=== PATIENT | female | born 1990 | race Caucasian/White ===

== ENCOUNTER 2017-04-15 13:17 | Inpatient (IN) | payer MEDICAID ==
[~2017-04-15] VITALS: Ht 165.1 cm; Wt 73.5 kg
[2017-04-15 13:50] LABS: BASOPHILS # (AUTO) 0.03 K/uL (0.00-0.20); BASOPHILS % (AUTO) 0.3 % (0.0-2.0); EOSINOPHILS # (AUTO) 0.03 K/uL (0.00-0.70); EOSINOPHILS % (AUTO) 0.35 % (1.0-6.0); HEMATOCRIT 36.5 % (36-46); HEMOGLOBIN 12.4 g/dL (12.0-16.0); LYMPHOCYTES # (AUTO) 1.6 K/uL (1.0-4.8); LYMPHOCYTES % (AUTO) 17.7 % (22.0-44.0); MEAN CORPUSCULAR HEMOGLOBIN 32.1 pg (26.0-34.0); MEAN CORPUSCULAR VOLUME 94 fL (80-100); MONOCYTES # (AUTO) 0.4 K/uL (0.1-1.0); MONOCYTES % (AUTO) 4.1 % (2.0-9.0); NEUTROPHILS # (AUTO) 7.1 K/uL (1.8-7.7); NEUTROPHILS % (AUTO) 77.6 % (40.0-70.0); PLATELET COUNT (AUTO) 270 K/uL (150-450); RED BLOOD CELL COUNT(AUTO) 3.87 MIL/uL (4.00-5.20); RED CELL DISTRIBUTION WIDTH 13.1 % (11.5-14.5); WHITE BLOOD COUNT (AUTO) 9.2 K/uL (4.5-11.0)
[2017-04-15] MEDS ORDERED: BUSP15 PO (13:53)
[2017-04-15 14:52] LABS: ANION GAP 13 mmol/L (8-16); CALCIUM, TOTAL 8.9 mg/dL (8.8-10.5); CARBON DIOXIDE 25 mmol/L (22-29); CHLORIDE 102 mmol/L (98-107); GLOMERULAR FILTR. RATE CALC > 60 mL/min (>60); POTASSIUM 3.7 mmol/L (3.5-5.1); SODIUM SERUM 140 mmol/L (136-145); UREA NITROGEN, BLOOD 7 mg/dL (7-18)
[2017-04-15 14:58] LABS: ALANINE AMINOTRANSFERASE 19 U/L (12-78); ALBUMIN 4.1 g/dL (3.4-5.0); ASPARTATE AMINOTRANSFERASE 19 U/L (15-37); BILIRUBIN,TOTAL 0.5 mg/dL (0.1-1.0); TOTAL PROTEIN, SERUM 8.3 g/dL (6.4-8.2)
[2017-04-15] MEDS ORDERED: LORazepam 2 MG TABLET PO PRN (15:00)
[2017-04-15] MEDS ORDERED: ZOLPIDEM TARTRATE 10 MG TABLET PO PRN (15:00)
[2017-04-15] MEDS ORDERED: HALOPERIDOL 5 MG TABLET PO PRN (15:00)
[2017-04-15] MEDS ORDERED: LORazepam 2 MG/ML VIAL IM ONE (15:15)
[2017-04-15] MEDS ORDERED: HALOPERIDOL LACTATE 5 MG/ML VIAL IM ONE (15:15)
[2017-04-15] MEDS ORDERED: DiphenhydrAMINE HCL 50 MG/ML VIAL IM ONE (15:15)
[2017-04-15 21:14] VITALS: BP 131/78
[2017-04-16 08:50] VITALS: BP 123/67
[2017-04-16] MEDS: RisperiDONE 1 MG TABLET PO SCH ×2 (10:00→17:00)
[2017-04-16] MEDS: BusPIRone HCL 15 MG TABLET PO SCH ×2 (10:52→18:21)
[2017-04-16 16:30] VITALS: BP 128/71
[2017-04-16] MEDS ORDERED: ACETAMINOPHEN 325 MG TABLET PO PRN (19:45)
[2017-04-17] MEDS: RisperiDONE 1 MG TABLET PO SCH ×2 (08:05→16:33)
[2017-04-17] MEDS: BusPIRone HCL 15 MG TABLET PO SCH ×2 (08:05→16:33)
[2017-04-17 08:10] VITALS: BP 115/66
[2017-04-17 16:15] VITALS: BP 113/70
[2017-04-18 08:00] VITALS: BP 110/65
[2017-04-18] MEDS: RisperiDONE 1 MG TABLET PO SCH ×2 (09:02→16:28)
[2017-04-18] MEDS: BusPIRone HCL 15 MG TABLET PO SCH ×2 (09:02→16:28)
[2017-04-18 16:32] VITALS: BP 116/70
[2017-04-19] MEDS: RisperiDONE 2 MG TABLET PO SCH ×2 (08:02→16:43)
[2017-04-19] MEDS: BusPIRone HCL 15 MG TABLET PO SCH ×2 (08:02→16:39)
[2017-04-19 08:09] VITALS: BP 121/76
[2017-04-19 17:00] VITALS: BP 100/60
[2017-04-20] MEDS: BusPIRone HCL 15 MG TABLET PO SCH ×2 (08:12→16:33)
[2017-04-20 08:59] VITALS: BP 124/61
[2017-04-20] MEDS ORDERED: ARIPiprazole 10 MG TABLET PO SCH (09:00)
[2017-04-20 18:56] VITALS: BP 112/77
[2017-04-20] MEDS: PALIPERIDONE 1.5 MG ER TABLET PO SCH (20:25)
[2017-04-21] MEDS: BusPIRone HCL 15 MG TABLET PO SCH ×2 (08:16→16:52)
[2017-04-21] MEDS: PALIPERIDONE 1.5 MG ER TABLET PO SCH ×2 (08:16→20:12)
[2017-04-21 08:26] VITALS: BP 137/63
[2017-04-21 16:56] VITALS: BP 125/75
[2017-04-22 08:00] VITALS: BP 111/67
[2017-04-22] MEDS: BusPIRone HCL 15 MG TABLET PO SCH ×2 (10:29→17:31)
[2017-04-22] MEDS: PALIPERIDONE 1.5 MG ER TABLET PO SCH ×2 (10:29→21:10)
[2017-04-22 17:18] VITALS: BP 112/74
[2017-04-23 08:05] VITALS: BP 111/54
[2017-04-23] MEDS: BusPIRone HCL 15 MG TABLET PO SCH ×2 (10:31→17:41)
[2017-04-23] MEDS: PALIPERIDONE 1.5 MG ER TABLET PO SCH ×2 (10:32→21:26)
[2017-04-23 16:15] VITALS: BP 119/79
[2017-04-24 08:19] VITALS: BP 107/67
[2017-04-24] MEDS: BusPIRone HCL 15 MG TABLET PO SCH ×2 (08:19→16:29)
[2017-04-24] MEDS: PALIPERIDONE 1.5 MG ER TABLET PO SCH ×2 (08:19→20:17)
[2017-04-24] MEDS: IBUPROFEN 400 MG TABLET PO PRN (11:47)
[2017-04-24 16:30] VITALS: BP 124/77
[2017-04-25 05:17] VITALS: BP 125/82
[2017-04-25] MEDS: IBUPROFEN 400 MG TABLET PO PRN (05:17)
[2017-04-25 08:04] VITALS: BP 103/75
[2017-04-25] MEDS: BusPIRone HCL 15 MG TABLET PO SCH ×2 (10:07→16:17)
[2017-04-25] MEDS: PALIPERIDONE 1.5 MG ER TABLET PO SCH ×2 (10:07→21:09)
[2017-04-25 17:00] VITALS: BP 114/52
[2017-04-26 08:00] VITALS: BP 126/75
[2017-04-26] MEDS: PALIPERIDONE 1.5 MG ER TABLET PO SCH ×2 (08:14→20:18)
[2017-04-26] MEDS: BusPIRone HCL 15 MG TABLET PO SCH ×2 (08:15→16:58)
[2017-04-26 19:23] VITALS: BP 117/71
[2017-04-27 08:14] VITALS: BP 110/77
[2017-04-27] MEDS: PALIPERIDONE 1.5 MG ER TABLET PO SCH ×2 (09:28→21:05)
[2017-04-27] MEDS: BusPIRone HCL 15 MG TABLET PO SCH ×2 (09:28→17:05)
[2017-04-27 17:02] VITALS: BP 126/74
[2017-04-28 09:13] VITALS: BP 120/60
[2017-04-28] MEDS: BusPIRone HCL 15 MG TABLET PO SCH (10:51)
[2017-04-28] MEDS: PALIPERIDONE 1.5 MG ER TABLET PO SCH (10:51)
[2017-04-28] MEDS ORDERED: PALI1.5T PO (12:03)
== END 2017-04-28 15:25 | disposition home or self-care (01) | DRG 751 ==
LOC: EMS 13:19 → 3EC 16:51 → 3EI 04-24 20:30
PROVIDERS: ADMIT Psychiatry & Neurology Psychiatry; ATTEND Psychiatry & Neurology Psychiatry
DX: F29 Unspecified psychosis not due to a substance or known physiological condition (principal); F22 Delusional disorders; F10.10 Alcohol abuse, uncomplicated; F41.9 Anxiety disorder, unspecified; Y04.0XXA Assault by unarmed brawl or fight, initial encounter; Z79.899 Other long term (current) drug therapy; Z88.8 Allergy status to other drugs, medicaments and biological substances
CPT/HCPCS: 96372; 99285; G0480; J1200; J1630; J2060

== ENCOUNTER 2017-04-30 23:19 | Emergency (ER) | payer MEDICAID ==
[~2017-04-30] VITALS: Ht 162.6 cm; Wt 73.6 kg
[~2017-04-30 23:19] MED LIST: BUSP15 PO; PALI1.5T PO
[2017-04-30 23:48] LABS: BASOPHILS % (AUTO) 0.5 % (0.0-2.0); EOSINOPHILS % (AUTO) 1.4 % (1.0-6.0); HEMATOCRIT 36.7 % (36-46); LYMPHOCYTES # (AUTO) 2.5 K/uL (1.0-4.8); LYMPHOCYTES % (AUTO) 24.4 % (22.0-44.0); MEAN CORPUSCULAR HEMOGLOBIN 31.3 pg (26.0-34.0); MEAN CORPUSCULAR HGB CONC 32.6 G/dL (31.0-37.0); MEAN CORPUSCULAR VOLUME 96 fL (80-100); MONOCYTES # (AUTO) 0.6 K/uL (0.1-1.0); MONOCYTES % (AUTO) 5.7 % (2.0-9.0); NEUTROPHILS # (AUTO) 7.1 K/uL (1.8-7.7); PLATELET COUNT (AUTO) 308 K/uL (150-450); RED BLOOD CELL COUNT(AUTO) 3.83 MIL/uL (4.00-5.20); RED CELL DISTRIBUTION WIDTH 13.2 % (11.5-14.5); WHITE BLOOD COUNT (AUTO) 10.5 K/uL (4.5-11.0)
[2017-04-30 23:58] LABS: ANION GAP 10 mmol/L (8-16); CALCIUM, TOTAL 8.5 mg/dL (8.8-10.5); CARBON DIOXIDE 27 mmol/L (22-29); CHLORIDE 103 mmol/L (98-107); CREATININE 0.78 mg/dL (0.60-1.30); GLOMERULAR FILTR. RATE CALC > 60 mL/min (>60); POTASSIUM 3.9 mmol/L (3.5-5.1); SODIUM SERUM 140 mmol/L (136-145); UREA NITROGEN, BLOOD 10 mg/dL (7-18)
[2017-05-01 00:06] LABS: ALANINE AMINOTRANSFERASE 19 U/L (12-78); ALBUMIN 3.7 g/dL (3.4-5.0); ASPARTATE AMINOTRANSFERASE 17 U/L (15-37); BILIRUBIN,TOTAL 0.1 mg/dL (0.1-1.0); TOTAL PROTEIN, SERUM 7.8 g/dL (6.4-8.2)
[2017-05-01 00:45] VITALS: BP 121/75
== END 2017-05-01 01:49 | disposition home or self-care (01) ==
LOC: EDUNIT# 23:19 → EMS 23:21
DX: F25.9 Schizoaffective disorder, unspecified (principal); F41.9 Anxiety disorder, unspecified; Z88.0 Allergy status to penicillin
CPT/HCPCS: 36415; 80053; 84703; 85025; 99284; G0480